=== PATIENT | female | born 1930 | race Caucasian/White ===

== ENCOUNTER 2017-05-18 23:40 | Emergency (ER) | payer OTHER, MEDICARE, MEDICAID ==
[~2017-05-18] VITALS: Ht 157.5 cm; Wt 50.8 kg
[2017-05-19] MEDS ORDERED: DOCU-94 PO (00:30)
[2017-05-19] MEDS ORDERED: CAR3125T PO (00:30)
[2017-05-19] MEDS ORDERED: ACE3T PO (00:30)
[2017-05-19] MEDS ORDERED: OMEP20CA74 PO (00:30)
[2017-05-19] MEDS ORDERED: LEVO100T8 PO (00:30)
[2017-05-19] MEDS ORDERED: SENN-58 PO (00:30)
[2017-05-19] MEDS ORDERED: VENL37.572 PO (00:30)
[2017-05-19] MEDS ORDERED: TRAZ50TA2 PO (00:30)
[2017-05-19] MEDS ORDERED: CLOP75TA28 PO (00:30)
[2017-05-19] MEDS ORDERED: BUTA-280 PO (00:30)
[2017-05-19] MEDS ORDERED: LISI-646 PO (00:30)
[2017-05-19] MEDS ORDERED: ATOR20TA PO ×2 (00:30)
[2017-05-19 01:09] LABS: Basophils # (auto) 0 uL; Basophils % (auto) 0.3 % (0.0-2.0); DEFINITIVE SEE PRINTOUT; Eosinophils # (auto) 0.1 uL; Eosinophils % (auto) 0.9 % (0.0-7.0); Hematocrit 41.2 % (36.0-46.0); Hemoglobin 13.5 g/dL (12.2-16.2); Lymphocytes # (auto) 2.2 uL; Lymphocytes % (auto) 19.9 % (10.0-50.0); Mean Corpuscular Hemoglobin 29.1 pg (28.0-32.0); Mean Corpuscular Hgb Conc. 32.8 g/dL (32.0-36.0); Mean Corpuscular Volume 88.7 fL (80.0-100.0); Mean Platelet Volume 8.8 fL (7.4-10.4); Monocytes # (auto) 1.4 uL; Monocytes % (auto) 12.3 % (0.0-12.0); Neutrophils # (auto) 7.6 uL; Neutrophils % (auto) 66.6 % (37.0-80.0); Platelet Count (auto) 230 10^3/uL (140-450); Red Cell Distribution Width 19.4 % (11.6-16.0); White Blood Cell 11.3 10^3/uL (4.4-10.8)
[2017-05-19 01:20] LABS: Albumin 3.1 g/dL (3.4-5.0); BUN/Creatinine Ratio 34.2; Calcium 8.7 mg/dL (8.5-10.1); Potassium 3.9 mmol/L (3.5-5.1)
[2017-05-19 01:25] LABS: Bilirubin, Total 0.4 mg/dL (0.2-1.0); Total Protein 6.3 g/dL (6.4-8.2)
[2017-05-19 01:27] LABS: B-Type Natriuretic Peptide 2230.2 pg/mL (0-100)
[2017-05-19 01:47] LABS: Temperature: 23.7 C (20.0-25.0)
[2017-05-19] MEDS ORDERED: ONDANSETRON HCL 4 MG/2 ML VIAL IV ONE (02:15)
[2017-05-19] MEDS ORDERED: FUROSEMIDE 20 MG/2 ML VIAL IV ONE (02:15)
[2017-05-19 02:32] LABS: INR 1.14 (0.9-1.15); Partial Thromboplastin Time 27.8 sec (22.64-33.71)
[2017-05-19 02:41] LABS: Prothrombin Time 12.4 sec (9.37-12.3)
[2017-05-19] MEDS ORDERED: ACETAMINOPHEN/CODEINE#3 (300/30mg) TAB PO ONE (02:45)
[2017-05-19 02:49] LABS: Urine Bilirubin Negative (Negative); Urine Blood Negative /uL (Negative); Urine Color Yellow (Yellow); Urine Glucose Normal (Normal); Urine Ketone Negative (Negative); Urine Nitrite Negative (Negative); Urine RBC 1 /hpf (0 - 4); Urine Urobilinogen Normal (Negative); Urine pH 6.5 (5.0-8.0)
[2017-05-19 05:24] VITALS: BP 154/81
== END 2017-05-19 10:10 | disposition home or self-care (01) ==
LOC: EDBD 23:40 → ER 23:40
DX: I48.91 Unspecified atrial fibrillation (principal); I50.43 Acute on chronic combined systolic (congestive) and diastolic (congestive) heart failure; R40.4 Transient alteration of awareness; E03.9 Hypothyroidism, unspecified; F41.9 Anxiety disorder, unspecified; K21.9 Gastro-esophageal reflux disease without esophagitis; Z79.01 Long term (current) use of anticoagulants; Z86.73 Personal history of transient ischemic attack (TIA), and cerebral infarction without residual deficits
CPT/HCPCS: 36415; 51702; 70450; 71010; 80053; 81001; 83880; 84443; 84484; 85025; 85610; 85730; 93005; 94761; 96374; 96375; 99285; J1940; J2405